=== PATIENT | male | born 1995 | race Caucasian/White ===

== ENCOUNTER 2016-07-17 15:10 | Emergency (ER) | payer OTHER ==
[2016-07-17 16:00] VITALS: BP 122/61
--- NOTE | 2016-07-17 16:29 | UC ---
Throat Pain/Nasal Alan HPI - HPI Summary HPI Summary: complaint of sore that that started last night nasal congestion which has worsened today denies fever and chills, cough intermittent headache and ear pain hasn't taken any medication for his symptoms borther recently treated for strep throat - History of Current Complaint Chief Complaint: UCRespiratory Stated Complaint: SWOLLEN TONSILS, AND SORE THROAT Time Seen by Provider: 07/17/16 16:09 Hx Obtained From: Patient - Allergies/Home Medications Allergies/Adverse Reactions: Allergies Allergy/AdvReac Type Severity Reaction Status Date / Time No Known Allergies Allergy Verified 03/09/13 12:00 Home Medications: Home Medications Albuterol HFA INHALER* [Ventolin HFA Inhaler*] 1 puff INH Q4H PRN 07/17/16 [ History Confirmed 07/17/16] PMH/Surg Hx/FS Hx/Imm Hx Previously Healthy: Yes Endocrine History Of: Denies: Diabetes, Thyroid Disease Cardiovascular History Of: Denies: Cardiac Disorders, Hypertension Respiratory History Of: Reports: Asthma Denies: COPD GI/ History Of: Denies: Ulcer - Surgical History Surgical History: None - Family History Known Family History: Negative: Cardiac Disease, Hypertension, Diabetes - Social History Occupation: Student Lives: With Family Alcohol Use: Rare Substance Use Type: None Smoking Status (MU): Never Smoked Tobacco Review of Systems Constitutional: Fever Skin: Negative Eyes: Negative ENT: Sore Throat, Ear Ache, Nasal Discharge Respiratory: Cough Cardiovascular: Negative Gastrointestinal: Negative Genitourinary: Negative Motor: Negative Neurovascular: Negative Musculoskeletal: Negative Neurological: Negative Psychological: Negative All Other Systems Reviewed And Are Negative: Yes Physical Exam Triage Information Reviewed: Yes Appearance: Well-Nourished Vital Signs: Initial Vital Signs Temp 100.9 F 07/17/16 15:56 Pulse 86 07/17/16 15:56 Resp 18 07/17/16 15:56 BP 122/61 07/17/16 15:56 Pulse Ox 99 07/17/16 15:56 Vital Signs Reviewed: Yes Eyes: Positive: Conjunctiva Clear ENT: Positive: Pharyngeal erythema, Nasal congestion, TMs normal, Tonsillar swelling, Tonsillar exudate Dental: Positive: Cervical Lymphadenopathy Neck: Positive: Supple Respiratory: Positive: Lungs clear, Normal breath sounds, No respiratory distress Cardiovascular: Positive: RRR, No Murmur, Pulses Normal Abdomen Description: Positive: Nontender, Soft Bowel Sounds: Positive: Present Musculoskeletal: Positive: No Edema Neurological: Positive: Alert Psychological Exam: Normal Skin Exam: Normal Throat Pain/Nasal Course/Dx - Differential Dx/Diagnosis Differential Diagnosis/HQI/PQRI: Pharyngitis, Sinusitis, Tonsillitis Provider Diagnoses: tonsilitis Discharge - Discharge Plan Condition: Stable Disposition: HOME Prescriptions: Penicillin VK TAB 500 MG(NF) [Penicillin VK 500 mg Tab(NF)] 500 mg PO TID #30 tab Patient Education Materials: Tonsillitis (ED) Referrals: No Primary Care Phys,NOPCP [Primary Care Provider] - [facility] [place] [facility] [Outside] Additional Instructions: TONSILLITIS What is Tonsillitis? Tonsillitis is an infectious condition with symptoms characterized by inflamed tonsils, fever, painful swallowing, sore throat, and a slight voice change. Other symptoms include a white or yellow coating on the tonsils, swollen lymph nodes, headache, and bad breath. Nausea, vomiting, and abdominal pain may occur in younger children. Throat infection (pharyngitis) often occurs along with tonsillitis. Tonsillitis may be caused by either viruses or bacteria, and often the symptoms are the same no matter which germ is causing the infection. Bacterial tonsillitis can be treated with antibiotics, but viral tonsillitis cannot. Sometimes healthcare providers differentiate between the two by taking a throat culture (a painless swab of the back of the throat) or a quick step test and send it to the lab. Eighty-five percent of throat cultures are negative for strep; the majority of infections are caused by a virus. Symptoms Might Include: Mild to severe sore throat and difficulty swallowing Fever Swollen, tender neck glands Headache Muscle and joint pain Loss of appetite Ear ache Breathing through the mouth Nausea or vomiting How Long Will My Symptoms Last? When tonsillitis is caused by Group A streptococci, fever usually stops within 48 hours, and the sore throat disappears soon afterward. With antibiotic treatment, the illness is usually cured within 1 week, but it may take several weeks for the tonsils and swollen glands to return to normal size. When tonsillitis is caused by viruses, the length of illness depends on which virus is involved. Most people are almost completely recovered within 1 week. Contagiousness: All forms of tonsillitis are contagious. Tonsillitis usually spreads from person to person by contact with the throat or nasal fluids of someone who is already infected. Drinking glasses and eating utensils should be kept separate from those of other family members and should be washed with hot soapy water, or washed in the automobile mechanic apprentice. All family members should was their hand frequently. If you have a cough, be sure to cover your mouth when coughing. Place used tissues directly in the garbage can. Revised 2015 Page 2 of 2 Treatment Recommendations: Drink plenty of fluids. Popsicles or frozen fruit and juice bars also provide fluids and may provide some pain relief. Rinse your throat with warm salt water: Mix 1 teaspoon of salt in 1 cup of warm water. After you finish rinsing, spit out the water; DO NOT SWALLOW IT. Rinse every 2 to 4 hours for several days. Check temperature two to four times each day. [id number] medications, such as acetaminophen (Tylenol) and ibuprofen (Motrin, Advil), will also ease pain and fever. Take these and other medicines exactly as directed. DO NOT ever administer aspirin to children. The healthcare provider may have prescribed an antibiotic medicine. The medicine should be taken until it is completely gone, even if you are feeling better. If you stop taking the medicine early, the infection may not be completely gone, and the medication may not work the next time. Rest in bed for 1 or 2 days, and then slowly resume your regular activities. Eat soft or liquid foods for several days until your throat feels better. Milk, milk shakes, ice cream, gelatin, soups, and instant breakfast drinks are good choices. Use a cool mist humidifier to add moisture to the air. Call Your Doctor or Return Here IF: You develop a high fever that does not go down with medicine such as Tylenol?. You have increased trouble breathing or swallowing. You begin to have any other new symptoms that worry you.
== END 2016-07-17 16:47 | disposition home or self-care (01) ==
LOC: UCEAST 15:10
DX: J03.90 Acute tonsillitis, unspecified (principal); J45.909 Unspecified asthma, uncomplicated
CPT/HCPCS: 99202; G0463

== ENCOUNTER 2016-08-22 15:12 | Emergency (ER) | payer OTHER ==
[2016-08-22 15:48] VITALS: BP 115/64
--- NOTE | 2016-08-22 16:32 | UC ---
Throat Pain/Nasal Alan HPI - HPI Summary HPI Summary: compaint of sore throat that started approx 1 day ago feels fatigued has swollen lymph nodes denies fever slight nasal congestion denies cough hasn't taken any medication for symptoms recent tx for strep throat 07/21/16- finished course of penicillin - History of Current Complaint Chief Complaint: UCGeneralIllness Stated Complaint: THROAT COMPLAINT Time Seen by Provider: 08/22/16 16:26 Hx Obtained From: Patient - Allergies/Home Medications Allergies/Adverse Reactions: Allergies Allergy/AdvReac Type Severity Reaction Status Date / Time pollen, dander Allergy Congestion Uncoded 08/22/16 15:36 Home Medications: Home Medications Loratadine [Claritin 10 MG CAP] 10 mg PO DAILY 08/22/16 [History Confirmed 08/22] PMH/Surg Hx/FS Hx/Imm Hx Previously Healthy: Yes Endocrine History Of: Denies: Diabetes, Thyroid Disease Cardiovascular History Of: Denies: Cardiac Disorders, Hypertension Respiratory History Of: Reports: Asthma Denies: COPD GI/ History Of: Denies: Ulcer - Surgical History Surgical History: None - Family History Known Family History: Negative: Cardiac Disease, Hypertension, Diabetes - Social History Occupation: Student Lives: With Family Alcohol Use: Rare Substance Use Type: None Smoking Status (MU): Never Smoked Tobacco - Immunization History Most Recent Influenza Vaccination: 2016 Review of Systems Constitutional: Negative Skin: Negative Eyes: Negative ENT: Sore Throat, Nasal Discharge Respiratory: Negative Cardiovascular: Negative Gastrointestinal: Negative Genitourinary: Negative Motor: Negative Neurovascular: Negative Musculoskeletal: Negative Neurological: Negative Psychological: Negative All Other Systems Reviewed And Are Negative: Yes Physical Exam Triage Information Reviewed: Yes Appearance: No Pain Distress, Well-Nourished Vital Signs: Initial Vital Signs Temp 98.5 F 08/22/16 15:38 Pulse 69 08/22/16 15:38 Resp 18 08/22/16 15:38 BP 115/64 08/22/16 15:38 Pulse Ox 97 08/22/16 15:38 Vital Signs Reviewed: Yes Eyes: Positive: Conjunctiva Clear ENT: Positive: Pharyngeal erythema, TMs normal, Tonsillar swelling, Tonsillar exudate. Negative: Nasal congestion, Nasal drainage Dental: Positive: Cervical Lymphadenopathy Respiratory: Positive: Lungs clear, Normal breath sounds, No respiratory distress, No accessory muscle use Cardiovascular: Positive: RRR, No Murmur, Pulses Normal Abdomen Description: Positive: Nontender, Soft Bowel Sounds: Positive: Present Musculoskeletal Exam: Normal Neurological Exam: Normal Psychological Exam: Normal Skin Exam: Normal Throat Pain/Nasal Course/Dx - Differential Dx/Diagnosis Differential Diagnosis/HQI/PQRI: Pharyngitis, Tonsillitis Provider Diagnoses: pharyngitis Discharge - Discharge Plan Condition: Stable Disposition: HOME Patient Education Materials: Pharyngitis (ED) Referrals: No Primary Care Phys,NOPCP [Primary Care Provider] - [facility] [place] [facility] [place]] Additional Instructions: PHARYNGITIS (Sore Throat) What is Pharyngitis? The medical name for a sore throat is Pharyngitis. It is caused by an infection or irritation of your throat or tonsils. The infection can be caused by a virus or by bacteria. Not everyone with Pharyngitis needs antibiotics. Antibiotics will not make viral infections better, and they will not help a sore throat caused by irritation. Symptoms May Include: Sore throat Swelling of the glands in the neck Trouble or pain with swallowing Fever Headache Cough Extreme tiredness Ear pain Treatment Recommendations: Gargle every few hours with a solution of 1/4 teaspoon of salt dissolved in 1/ 2 cup of warm water. Drink plenty of warm beverages, like tea with lemon, (with or without honey) and soup. You may eat and drink cold foods and liquids like frozen yogurt, popsicles, and ice water if that makes your throat feel better. The goal is to keep you well hydrated. Use a "cool-mist" vaporizer or humidifier in the room where you spend most of your time. If you get a sore throat often, consider adding an electronic air filter and humidifier to your furnace system. Don't smoke. Do not eat spicy foods. Take medicine exactly as prescribed. If you do not think it is helping, call your healthcare provider. Do not increase how much or how often you take it without getting their OK first. Non-prescription anti-inflammatory medicine like ibuprofen (Motrin, Advil) or naproxen (Aleve) may help lessen the pain. You should not take these medicines if you have had bleeding in your stomach in the past. Acetaminophen ( Tylenol) is another choice of medicine that may help the pain. If pain medicine that makes you tired or sleepy or contains narcotics is prescribed, you should not drink, drive, or participate in any other activities that you need to be clear-headed for. Please keep all medicines out of the reach of children. Do not get in close contact with anyone you know who has a sore throat. Use throat lozenges (Cepostat, Norden, etc.) or suck on hard candy for temporary relief of the pain with swallowing. (Do not give to children under age 5.) Call Your Doctor or Return Here IF: Your symptoms do not start to get better within 2 days or you become worse. You have a fever over 101.0 F orally. You cant swallow liquids or saliva. You are drooling. You start to have trouble breathing. You start to have a rash. You start to have a stiff neck. You start to have pain in your chest. You start to have any symptoms that are new or worry you.
[2016-08-22] MEDS ORDERED: Ibuprofen TAB* 400 MG PO ONE (16:45)
== END 2016-08-22 17:14 | disposition home or self-care (01) ==
LOC: UCEAST 15:12
DX: J02.9 Acute pharyngitis, unspecified (principal); R53.83 Other fatigue; R09.81 Nasal congestion; J45.909 Unspecified asthma, uncomplicated
CPT/HCPCS: 87070; 87651; 99211; A9270-GY; G0463